=== PATIENT | male | born 1970 | race Caucasian/White ===

== ENCOUNTER 2024-02-08 09:17 | Emergency (ER) | payer BC ==
[~2024-02-08] VITALS: Ht 172.7 cm; Wt 68.2 kg
[2024-02-08] MEDS: HYDROmorphone 1 mg/ml syringe IV ONE (09:41)
[2024-02-08] MEDS: ketorolac trometh 30MG/ML vial 30 MG/ML VIAL IV ONE (09:42)
[2024-02-08] MEDS: normal saline 1000ml 1,000 ML IV ONE (09:42)
[2024-02-08 09:58] LABS: EOSINOPHILS # (AUTO) 0.1 X10'3 (0-0.9); MEAN PLATELET VOLUME 7.2 FL (7.4-10.4); MONOCYTES # (AUTO) 0.7 X10'3 (0-0.9); NEUTROPHILS # (AUTO) 2.2 X10'3 (1.8-7.7)
[2024-02-08 10:00] LABS: BASOPHILS % (AUTO) 0.3 % (0-1); HEMOGLOBIN 17.8 g/dl (14.0-17.9); LYMPHOCYTES # (AUTO) 5.7 X10'3 (1.1-4.8); MEAN CORPUSCULAR HEMOGLOBIN 30.4 PG (27.0-31.0); MEAN CORPUSCULAR HGB CONC 33.5 g/dL (33.0-36.5); MEAN CORPUSCULAR VOLUME 90.6 FL (78-98); MONOCYTES % (AUTO) 7.7 % (2-12); PLATELET COUNT 287 X10'3 (140-440); RED BLOOD COUNT 5.85 X10'6 (4.70-6.10); RED CELL DISTRIBUTION WIDTH 13.8 % (11.5-14.5); WHITE BLOOD COUNT 8.6 X10'3 (4.5-11.0)
[2024-02-08 10:25] LABS: ALANINE AMINOTRANSFERASE 52 U/L (12-78); ALBUMIN 3.7 G/DL (3.4-5.0); ALKALINE PHOSPHATASE 62 IU/L (46-116); ANION GAP 12 (8-16); ASPARTATE AMINO TRANSFERASE 37 U/L (10-37); BILIRUBIN,TOTAL 1.2 MG/DL (0.1-1.0); BLOOD UREA NITROGEN 23 MG/DL (7-18); BUN/CREATININE RATIO 20.5 (10.0-20.0); CALCIUM 8.8 MG/DL (8.5-10.1); CHLORIDE 101 MMOL/L (99-107); CREATININE 1.12 MG/DL (0.60-1.10); GLUCOSE 114 MG/DL (70-104); LIPASE 76 U/L (16-77); SODIUM 140 MMOL/L (135-145); TOTAL CARBON DIOXIDE 26.8 MMOL/L (24-32); TOTAL PROTEIN 7.4 G/DL (6.4-8.2); eCRCL 73 ML/MIN; eGFR 68 ML/MIN
[2024-02-08 10:26] LABS: POTASSIUM 2.7 MMOL/L (3.5-5.1)
[2024-02-08 10:28] LABS: PRO BRAIN NATRIURETIC PEPTIDE < 30 PG/ML (0-125)
[2024-02-08] MEDS ORDERED: iohexol 300mg/ml 100ml inj. ONE (10:43)
[2024-02-08] MEDS ORDERED: POTASSIUM CHLORIDE 20 MEQ/15 ML oral solution PO SCH (11:02)
[2024-02-08 11:36] LABS: TOTAL CELLS COUNTED 100
[2024-02-08 11:37] LABS: PLATELET ESTIMATE NORMAL
[2024-02-08] MEDS ORDERED: DOCU-148 PO (11:37)
[2024-02-08] MEDS ORDERED: BISA10SU62 RC (11:37)
[2024-02-08] MEDS: POTASSIUM CHLORIDE 20 MEQ/15 ML oral solution PO ONE (11:58)
[2024-02-08] MEDS: magnesium sulf-water 2g/50mL 50 ML IV ONE (12:00)
[2024-02-08 13:08] VITALS: BP 133/94; PULSE 73; RESP 15; TEMP 97.8; O2SAT 97
== END 2024-02-08 13:02 | disposition home or self-care (01) ==
LOC: ER 09:18
DX: R10.11 Right upper quadrant pain (principal); E87.6 Hypokalemia; K59.00 Constipation, unspecified
CPT/HCPCS: 36415; 71045; 71260; 74018; 74177; 80053; 83605; 83690; 83880; 84484; 85007; 85025; 93005; 96361; 96365; 96375; 99285; J1171; J1885; J7030; Q9967